=== PATIENT | female | born 1995 | race Caucasian/White ===

== ENCOUNTER 2020-05-14 10:02 | Emergency (ER) | payer BC, SELFPAY ==
[2020-05-14 10:21] VITALS: BP 144/98; PULSE 88; RESP 18; TEMP 36.8; O2SAT 100
--- NOTE | 2020-05-14 10:22 | ED.URI ---
HPI - URI/Sore Throat General Chief Complaint: Upper Respiratory Infection Stated Complaint: upper respiratory infection Time Seen by Provider: 05/14/20 10:10 Source: patient Mode of arrival: ambulatory Limitations: no limitations History of Present Illness HPI Narrative: This is a 24-year-old white female that presented to the urgent care today complaining of throat and ear pain. According to the patient she developed symptoms on Wednesday she noted that she had nasal congestion with yellowish fluids she also complains of a sore throat and ear pain. Patient did not take anything at home for her symptoms. She also noted that her [id number] has been ill but she is unsure of the cause of his illness. Patient did note that she took a recent culture test yesterday which was negative MD elicited complaint: sore throat Related Data Allergies Allergy/AdvReac Type Severity Reaction Status Date / Time No Known Allergies Allergy Verified 05/14/20 10:20 Review of Systems Review of Systems: Narrative: CONSTITUTIONAL: Denies fever, chills, sweats. EYES: Denies visual changes, redness, discharge. ENT: Complains of rhinorrhea, congestion, sore throat, bilateral ear pain CARDIOVASCULAR: Denies chest pain, palpitations, edema. RESPIRATORY: Denies dyspnea, wheezing, cough GASTROINTESTINAL: Denies abdominal pain, nausea, vomiting, diarrhea. GENITOURINARY: Denies dysuria, hematuria, abnormal discharge SKIN: Denies rash or itching. MUSCULOSKELETAL: Denies acute back pain, joint pain, or myalgia. NEUROLOGIC: Denies numbness, or focal weakness. PSYCHIATRIC: Denies anxiety or depression. [facility] Social History Social History Gender identity (if verbalized by the patient): Female Exam Narrative: Exam Narrative: GENERAL: This is a well-nourished, well-developed patient, in no apparent distress. HEAD: normocephalic, atraumatic. EYES: PERRL. Sclera clear/white. Vision is grossly intact. EARS: External ears normal, auditory canals clear with erythma , TMs normal without perforation. Hearing grossly intact. NOSE: External nose normal with no obvious nasal discharge, nares without redness, no rhinorrhea. THROAT: Erythema and edematous NECK: Neck supple, non-tender without lymphadenopathy, masses or thyromegaly. CARDIOVASCULAR: Regular rate and rhythm without murmurs, gallops, or rubs. RESPIRATORY: Clear to auscultation. Breath sounds equal bilaterally. No wheezes, rales, or rhonchi. GASTROINTESTINAL: Abdomen soft, non-tender, nondistended. Bowel sounds are active. No hepato-splenomegaly, or palpable masses. No guarding. SKIN: warm, intact with no suspicious lesions or rash, good texture and turgor. NEURO: awake, alert, and oriented to person, place and time. There were no obvious focal neurologic abnormalities. Steady gait EXTREMITIES: Normal range of motion. No edema. No calf tenderness. Negative Homans sign bilaterally. BACK: Nontender without deformity or crepitance. No flank tenderness. Course Course Emergency Course: Positive for strep Vital Signs Vital signs: Vital Signs Temperature 98.3 F 05/14/20 10:21 Pulse Rate 88 05/14/20 10:21 Respiratory Rate 18 05/14/20 10:21 Blood Pressure 144/98 H 05/14/20 10:21 Pulse Oximetry 100 05/14/20 10:21 Temperature 98.3 F 05/14/20 10:21 Pulse Rate 88 05/14/20 10:21 Respiratory Rate 18 05/14/20 10:21 Blood Pressure 144/98 H 05/14/20 10:21 Pulse Oximetry 100 05/14/20 10:21 MDM - URI/Sore Throat Differential Diagnosis Differential diagnosis: Likely upper respiratory infection, otitis media, sinusitis, bronchitis and pharyngitis Medical Records Medical records narrative: Have reviewed nursing assessment and agrees with Discharge Plan Discharge Clinical Impression: Otitis media, Strep pharyngitis Patient Disposition: Home, Self-Care Condition: Stable Instructions: Antibiotic Form Additional Instructions: Rapid strep is negative in the office; rosa
--- NOTE | 2020-05-14 12:44 | ED.URI ---
HPI - URI/Sore Throat General Chief Complaint: Upper Respiratory Infection Stated Complaint: upper respiratory infection Time Seen by Provider: 05/14/20 10:10 Source: patient Mode of arrival: ambulatory Limitations: no limitations Related Data Allergies Allergy/AdvReac Type Severity Reaction Status Date / Time No Known Allergies Allergy Verified 05/14/20 10:20 Review of Systems Review of Systems: Narrative: CONSTITUTIONAL: Denies fever, chills, sweats. EYES: Denies visual changes, redness, discharge. ENT: Denies rhinorrhea, congestion, sore throat, otalgia. CARDIOVASCULAR: Denies chest pain, palpitations, edema. RESPIRATORY: Denies dyspnea, wheezing, cough GASTROINTESTINAL: Denies abdominal pain, nausea, vomiting, diarrhea. GENITOURINARY: Denies dysuria, hematuria, abnormal discharge SKIN: Denies rash or itching. MUSCULOSKELETAL: Denies acute back pain, joint pain, or myalgia. NEUROLOGIC: Denies numbness, or focal weakness. PSYCHIATRIC: Denies anxiety or depression. [facility] Social History Social History Gender identity (if verbalized by the patient): Female Course Vital Signs Vital signs: Vital Signs Temperature 98.3 F 05/14/20 10:21 Pulse Rate 88 05/14/20 10:21 Respiratory Rate 18 05/14/20 10:21 Blood Pressure 144/98 H 05/14/20 10:21 Pulse Oximetry 100 05/14/20 10:21 Temperature 98.3 F 05/14/20 10:21 Pulse Rate 88 05/14/20 10:21 Respiratory Rate 18 05/14/20 10:21 Blood Pressure 144/98 H 05/14/20 10:21 Pulse Oximetry 100 05/14/20 10:21 MDM - URI/Sore Throat Lab Data Labs: Strep Screen Positive Group A Strep *(Reference Range: Negative)* Discharge Plan Discharge Clinical Impression: Otitis media, Strep pharyngitis Patient Disposition: Home, Self-Care Condition: Stable Instructions: Antibiotic Form Additional Instructions: Rapid strep is negative in the office; however we will send to the lab for confirmation; there is a small percentage chance that it can come back positive; if it is, we will call you in 2-3days; and your prescription will be call in to your pharmacy. However, there is NO indication for antibiotic at this time. -Give your child things that are easy to swallow, like tea or soup, or popsicles to suck on. Your child might not feel like eating or drinking, but it's important that he or she gets enough liquids. -Oral rinses such as: Salt water gargles and/or may use topical anesthetic (eg. Chloraseptic spray) or lozenges to relieve dryness or throat pain. -Take tylenol and ibuprofen as needed for pain and fever as directed. -Frequent hand washing or hand multi spindle operator is one of the best ways to prevent spread of infection. -Follow up with primary care provider in 2-3 days if condition is not improving or seek ER visit if your child starts breathing fast/has trouble breathing, is not drinking enough fluids, muffle voice, difficulty opening the mouth or will not wake up or will not interact with you. Prescriptions: New amoxicillin 500 mg tablet 500 mg PO TID 10 Days Qty: 30 RF: 0 Follow-up/Referrals: PHYSICIAN NOT ON STAFF,NONSTAFF [Primary Care Provider] - Time of Disposition: 10:34 Discharge Date/Time: 05/14/20 10:37
== END 2020-05-14 10:37 | disposition home or self-care (01) ==
PROVIDERS: Emergency Provider Nurse Practitioner
DX: H66.93 Otitis media, unspecified, bilateral (principal); J02.0 Streptococcal pharyngitis
CPT/HCPCS: 87880; 99213; G0463

== ENCOUNTER 2020-07-25 10:16 | Emergency (ER) | payer BC, SELFPAY ==
[2020-07-25 10:24] VITALS: BP 141/85; PULSE 76; RESP 16; TEMP 36.5; O2SAT 100
[2020-07-25 10:30] VITALS: BP 141/85; PULSE 76; RESP 16; TEMP 36.5; O2SAT 100
--- NOTE | 2020-07-25 10:31 | ED.URI ---
HPI - URI/Sore Throat General Chief Complaint: Upper Respiratory Infection Stated Complaint: Cough Time Seen by Provider: 07/25/20 10:31 Source: patient Mode of arrival: ambulatory Limitations: no limitations History of Present Illness HPI Narrative: Keri Rojas is a 24 yo female with no PMH [facility] and coughing up green mucus, that started about a week ago that has gradually gotten worse states that pain today is 4 out of 10. Hurts when cough or take a deep breath Related Data Home Medications Medication Instructions Recorded Confirmed drospirenone-ethinyl estradiol 1 tablet PO DAILY 07/25/20 07/25/20 [Yadira] Allergies Allergy/AdvReac Type Severity Reaction Status Date / Time No Known Allergies Allergy Verified 07/25/20 10:29 Review of Systems Review of Systems: Narrative: CONSTITUTIONAL: Denies fever, chills, sweats. Fatigue and cough EYES: Denies visual changes, redness, discharge. ENT: Denies rhinorrhea, nasal congestion, sore throat, otalgia. CARDIOVASCULAR: Denies chest pain, palpitations, edema. RESPIRATORY: Denies dyspnea, wheezing, productive cough GASTROINTESTINAL: Denies abdominal pain, nausea, vomiting, diarrhea. GENITOURINARY: Denies dysuria, hematuria, abnormal discharge SKIN: Denies rash or itching. NEUROLOGIC: Denies numbness, or focal weakness. PSYCHIATRIC: Denies anxiety or depression. PMFSH Past Medical History Medical History No acute medical problems Family History Family History Other Hypertension Social History Social History (Updated 07/25/20 @ 10:41 by Katina Alves CNP) Smoking status: Never smoker Alcohol intake: current Gender identity (if verbalized by the patient): Female Comments At time of signature, I agree with nursing past medical, surgical, social and family history. There is no relevant family history pertinent to the presenting complaint. Exam Narrative: Exam Narrative: GENERAL: This is a well-nourished, well-developed patient, in mild distress. HEAD: normocephalic, atraumatic. EYES: PERRL. Sclera clear/white. Vision is grossly intact. EARS: External ears normal, auditory canals clear and without drainage, TMs normal without perforation. Hearing grossly intact. NOSE: External nose normal without nasal discharge, nares without redness, no rhinorrhea. THROAT: Mucous membranes moist, posterior pharynx NECK: Neck supple, non-tender CARDIOVASCULAR: Regular rate and rhythm without murmurs, gallops, or rubs. RESPIRATORY: Diminished to auscultation. Breath sounds diminished on right lower lobe , No wheezes, rales, or rhonchi. GASTROINTESTINAL: Abdomen soft, r, SKIN: warm, intact with no suspicious lesions or rash, good texture and turgor. NEURO: awake, alert, and oriented to person, place and time. There were no obvious focal neurologic abnormalities. Steady gait EXTREMITIES: Normal range of motion. BACK: Nontender without deformity Course Course Emergency Course: Came to express care with productive cough with green mucus, postnasal drip and cough Diminished breath sounds on right, sporadic coughing, started on amoxicillin, albuterol, prednisone, Tessalon Follow-up with PCP Vital Signs Vital signs: Vital Signs Temperature 97.7 F 07/25/20 10:24 Pulse Rate 76 07/25/20 10:24 Respiratory Rate 16 07/25/20 10:24 Blood Pressure 141/85 H 07/25/20 10:24 Pulse Oximetry 100 07/25/20 10:24 Temperature 97.7 F 07/25/20 10:30 Pulse Rate 76 07/25/20 10:30 Respiratory Rate 16 07/25/20 10:30 Blood Pressure 141/85 H 07/25/20 10:30 Pulse Oximetry 100 07/25/20 10:30 MDM - URI/Sore Throat Differential Diagnosis Differential diagnosis: Likely upper respiratory infection, bronchitis, pharyngitis and other Discharge Plan Discharge Clinical Impression: Bronchitis
== END 2020-07-25 10:50 | disposition home or self-care (01) ==
PROVIDERS: Emergency Provider Nurse Practitioner
DX: J40 Bronchitis, not specified as acute or chronic (principal)
CPT/HCPCS: 99213; G0463

== ENCOUNTER 2022-09-14 08:04 | Emergency (ER) | payer OTHER, SELFPAY ==
--- NOTE | 2022-09-14 08:06 | ED.SKABFB ---
HPI - Skin/Abscess/Foreign Bdy General Chief complaint: Skin/Abscess/Foreign Body Stated complaint: Infected Nose Ring Time Seen by Provider: 09/14/22 08:21 Source: patient and RN notes reviewed Mode of arrival: ambulatory Limitations: dementia History of Present Illness HPI narrative: 26-year-old female presents with concern for infected nasal piercing. She reports she has had the piercing for over a year. Reports it started getting red couple of days ago today she woke up with worsening tenderness and a white bump on her nose. She denies fever, aches, chills, sweats, denies drainage from the area. Reports she has been putting [id number] antibiotic ointment without relief. She denies any pain, redness in her face, cheek MD complaint: abscess/boil Related Data Home Medications Medication Instructions Recorded Confirmed drospirenone 3 mg-ethinyl 1 tablet PO DAILY 07/25/20 09/14/22 estradiol 0.03 mg tablet (Yadira) bupropion HCl 150 mg 24 hr tablet, 150 mg PO DAILY 09/14/22 09/14/22 extended release spironolactone 50 mg tablet 100 mg PO DAILY 09/14/22 09/14/22 Allergies Allergy/AdvReac Type Severity Reaction Status Date / Time No Known Allergies Allergy Verified 09/14/22 08:13 Review of Systems Review of Systems: CONSTITUTIONAL: Denies malaise, chills, sweats, or fever. EYES: Denies redness, or discharge. ENT: Denies rhinorrhea CARDIOVASCULAR: Denies chest pain, palpitations, or edema. RESPIRATORY: Denies cough or dyspnea. GASTROINTESTINAL: Denies abdominal pain, nausea, vomiting SKIN: Reports redness, swelling of the left nostril. Denies purulent drainage, vesicles, bullae, numbness, pain beyond proportion MUSCULOSKELETAL: Denies joint pain or myalgia. NEUROLOGIC: Denies headache. All systems reviewed & are unremarkable except as noted in HPI and below PMFSH Past Medical History Medical History No acute medical problems Family History Family History Other Hypertension Social History Social History (Updated 07/25/20 @ 10:41 by Katina A. Long, BUSINESS SERVICES ANALYST) Smoking status: Never smoker Alcohol intake: current Gender identity (if verbalized by the patient): Female Comments At time of signature, agree with nursing past medical, surgical, social and family history. There is no relevant family history pertinent to the presenting complaint Exam Narrative: GENERAL: Well-appearing, well-nourished, and in no acute distress. HEAD: Normocephalic, atraumatic. EYES: PERRLA, conjunctivae clear ENT: Mucous membranes moist. NECK: Supple. No lymphadenopathy CHEST: Clear to auscultation. No respiratory distress. HEART: Regular rate and rhythm. SKIN: Warm, dry. Erythema, induration, tenderness, warmth with sharp margins noted to the left nostril with a small white pustule next to the piercing. No erythema, tenderness, induration noted outside of the left nostril. No vesicles, bullae, necrosis, ecchymosis, crepitus noted. NEURO: Alert and oriented x3. PSYCH: Normal mood and affect Course Course Emergency Course: Discussed with patient importance of monitoring this infection on her nose and if it worsens she needs to go to the emergency room. Patient is aware of diagnosis, understands and agrees to treatment plan. Anticipatory guidance given. Patient agrees to follow-up as directed and is aware of reasons to seek care at the emergency department. Portions of this record may have been created with voice recognition software Level of Care: Express Care Visit Vital Signs Vital signs: Reviewed. MDM - Skin/Abscess/Foreign Bdy MDM Narrative Medical decision making narrative: Does not appear at this time to be erythema multiforme, bullous, SJS, TEN; no evidence at this time to suggest RMSF, NSTI, endocarditis or Lyme disease; patient looks well, nontoxic and is tolerating oral intake; no carmen
[2022-09-14 08:12] VITALS: BP 112/71; PULSE 69; RESP 18; TEMP 36.7; O2SAT 99
[2022-09-14 08:14] VITALS: BP 112/71; PULSE 69; RESP 18; TEMP 36.7; O2SAT 99
== END 2022-09-14 08:40 | disposition home or self-care (01) ==
PROVIDERS: Emergency Provider Nurse Practitioner
DX: S01.24XA Puncture wound with foreign body of nose, initial encounter (principal); L08.9 Local infection of the skin and subcutaneous tissue, unspecified; X58.XXXA Exposure to other specified factors, initial encounter
CPT/HCPCS: 99213; G0463

== ENCOUNTER 2023-10-12 08:17 | Emergency (ER) | payer OTHER, SELFPAY ==
[2023-10-12 08:25] VITALS: BP 113/82; PULSE 85; RESP 16; TEMP 36.4; O2SAT 100
--- NOTE | 2023-10-12 08:41 | ED.URI ---
HPI - URI/Sore Throat General Chief Complaint: Upper Respiratory Infection Stated Complaint: Ear pain;Sore Throat Time Seen by Provider: 10/12/23 08:38 Source: patient and RN notes reviewed Mode of arrival: ambulatory Limitations: no limitations History of Present Illness HPI Narrative: 27-year-old female presents with concern for sore throat, ear pain, nasal congestion, rhinorrhea, cough, body aches, chills, sweats, fever. Reports symptoms started Wednesday. She reports she has been taking ibuprofen. Reports her son has similar symptoms. MD elicited complaint: sore throat and nasal congestion Related Data Home Medications Medication Instructions Recorded Confirmed drospirenone 3 mg-ethinyl 1 tablet PO DAILY 07/25/20 10/12/23 estradiol 0.03 mg tablet (Yadira) spironolactone 50 mg tablet 100 mg PO DAILY 09/14/22 10/12/23 phentermine 15 mg capsule 15 mg PO DAILY 10/12/23 10/12/23 sumatriptan succinate 50 mg tablet 50 mg PO DAILY 10/12/23 10/12/23 Allergies Allergy/AdvReac Type Severity Reaction Status Date / Time No Known Allergies Allergy Verified 10/12/23 08:34 Review of Systems Review of Systems: CONSTITUTIONAL: Reports malaise, chills, sweats, or fever. EYES: Denies visual changes, redness, or discharge. ENT: Reports rhinorrhea, congestion, otalgia and sore throat. CARDIOVASCULAR: Denies chest pain, palpitations, or edema. RESPIRATORY: Reports cough. Denies dyspnea. GASTROINTESTINAL: Denies abdominal pain, nausea, vomiting, diarrhea SKIN: Denies rash or itching. MUSCULOSKELETAL: Reports myalgia. NEUROLOGIC: Denies headache. All systems reviewed & are unremarkable except as noted in HPI and below PMFSH Past Medical History Medical History No acute medical problems Family History Family History Other Hypertension Social History Social History (Updated 07/25/20 @ 10:41 by Katina Alves, ARTURO) Smoking status: Never smoker Alcohol intake: current Gender identity (if verbalized by the patient): Female Comments At time of signature, agree with nursing past medical, surgical, social and family history. There is no relevant family history pertinent to the presenting complaint Exam Narrative: GENERAL: Well-appearing, well-nourished, and in no acute distress. HEAD: Normocephalic EYES: PERRLA, conjunctivae clear ENT: Nares clear. Mucous membranes moist. TM pearly frank with dull light reflex bilaterally; no tragal tenderness. Oropharynx not erythematous without lesions. Tonsils not enlarged and without exudate, no drooling, no hoarseness, no trismus, uvula midline. NECK: Supple. No lymphadenopathy CHEST: Clear to auscultation, breath sounds equal. No wheezing, rhonchi, rales, or stridor. No respiratory distress, speaks in full sentences. HEART: Regular rate and rhythm. No murmur heard. SKIN: Warm, dry, no rash. NEURO: Alert and oriented x3. PSYCH: Normal mood and affect Course Course Emergency Course: Patient is aware of diagnosis, understands and agrees to treatment plan. Anticipatory guidance given. Patient agrees to follow-up as directed and is aware of reasons to seek care at the emergency department. Portions of this record may have been created with voice recognition software Level of Care: Express Care Visit Vital Signs Vital signs: Vital Signs Temperature 97.5 F L 10/12/23 08:25 Pulse Rate 85 10/12/23 08:25 Respiratory Rate 16 10/12/23 08:25 Blood Pressure 113/82 10/12/23 08:25 Pulse Oximetry 100 10/12/23 08:25 Temperature 97.5 F L 10/12/23 08:25 Pulse Rate 85 10/12/23 08:25 Respiratory Rate 16 10/12/23 08:25 Blood Pressure 113/82 10/12/23 08:25 Pulse Oximetry 100 10/12/23 08:25 Reviewed. MDM - URI/Sore Throat MDM Narrative Medical decision making narrative: Differential diagnosis considered: Briseno virus, strep ph
== END 2023-10-12 09:08 | disposition home or self-care (01) ==
PROVIDERS: Emergency Provider Nurse Practitioner; PCP Nurse Practitioner
DX: B34.9 Viral infection, unspecified (principal); Z79.899 Other long term (current) drug therapy; Z20.822 Contact with and (suspected) exposure to COVID-19
CPT/HCPCS: 87081; 87426; 87804; 87880; 99213; G0463

== ENCOUNTER 2025-01-24 08:18 | Emergency (ER) | payer OTHER, SELFPAY ==
--- NOTE | 2025-01-24 08:20 | ED_ITS ---
HPI - Ear Problem General Chief complaint: Ear Stated complaint: right ear pain Time Seen by Provider: 01/24/25 08:19 Source: patient Mode of arrival: ambulatory Limitations: no limitations History of Present Illness HPI Narrative: Keri is a 29-year-old female patient presenting to the clinic today with complaints of right ear rash/itching. She reports this is been going on for the last few days. States that there is some clear drainage coming from the right ear. Area is very itchy. Denies any recent swimming. Related Data Home Medications ?Medication ?Instructions ?Recorded ?Confirmed ?Last Taken ?Type drospirenone 3 mg-ethinyl 1 tablet PO DAILY 07/25/20 10/12/23 Unknown History estradiol 0.03 mg tablet (Yadira) Allergies Allergy/AdvReac Type Severity Reaction Status Date / Time No Known Allergies Allergy Verified 01/24/25 08:33 Review of Systems 2 Review of Systems: Pertinent positives per HPI. Patient denies any fever, chills, rash, headache, visual changes, dizziness, cough, runny nose, sore throat, shortness of breath, chest pain, palpitations, nausea, vomiting, diarrhea, constipation, abdominal pain, or any urinary issues. PMFSH Past Medical History Medical History No acute medical problems Family History Family History Other Hypertension Social History Social History Smoking status: Never smoker Alcohol intake: current Gender identity (if verbalized by the patient): Female Comments At the time of my signature, I reviewed and agree with the nursing past medical, surgical, social, and family history. There is no relevant family history pertinent to the patient complaint. Exam Narrative: General: Well-developed, well nourished, in no apparent distress Head: Normocephalic, atraumatic. Cardio: Regular rate and rhythm, s1 and s2 normal, no murmur appreciated. Resp: Clear to auscultation bilaterally, no rhonchi, rales, wheezing or rubs. Integumentary: [place], warm, and dry, red, scaly, itchy rash to the right external ear canal with clear drainage Course Course Emergency Course: Portions of this record may have been created with voice recognition software. Level of Care: Express Care Visit Vital Signs Vital signs: Vital Signs Temperature 36.6 C 01/24/25 08:29 Pulse Rate 73 01/24/25 08:29 Respiratory Rate 18 01/24/25 08:29 Blood Pressure 115/71 01/24/25 08:29 Pulse Oximetry 100 01/24/25 08:29 Oxygen Delivery Room Air 01/24/25 08:29 Temperature 36.6 C 01/24/25 08:29 Pulse Rate 73 01/24/25 08:29 Respiratory Rate 18 01/24/25 08:29 Blood Pressure 115/71 01/24/25 08:29 Pulse Oximetry 100 01/24/25 08:29 Oxygen Delivery Room Air 01/24/25 08:29 Vital signs reviewed Medical Decision Making MDM Narrative Medical decision making narrative: At the time of visit patient is resting comfortably on the exam table. Patient appears to be nontoxic. Plan: I suspect patient has dermatitis of the right ear canal. Prescription for triamcinolone cream was sent to the pharmacy. Supportive measures were discussed with the patient and they voiced understanding discharge instructions and agrees to treatment plan. Return precautions reviewed Differential Diagnosis Differential Diagnosis: Otitis media, otitis externa, eustachian tube dysfunction, cerumen impaction, upper respiratory infection, serous otitis Vital Signs Vital Signs: Vital Signs Temperature 36.6 C 01/24/25 08:29 Pulse Rate 73 01/24/25 08:29 Respiratory Rate 18 01/24/25 08:29 Blood Pressure 115/71 01/24/25 08:29 Pulse Oximetry 100 01/24/25 08:29 Oxygen Delivery Room Air 01/24/25 08:29 Temperature 36.6 C 01/24/25 08:29 Pulse Rate 73 01/24/25 08:29 Respiratory Rate 18 01/24/25 08:29 Blood Pressure 115/71 01/24/25 08:29 Pulse Oximetry 100 01/24/25 08:29 Oxygen Delivery Room Air 01/24/25 08:29 Discharge Plan Discharge Clinical Impression: Dermatitis of right ear canal Patient Disposition: Home Condition: Stable Instructions: Antibiotic Form, Dermatitis (ED) Additional Instructions: Apply triamcinolone cream to the affected area twice daily x1 week Keep the area clean and dry May moisturize the area using and non scented lotion such as Lubriderm, Cetaphil, or Aquaphor Avoid scratching as this can cause a secondary infection Follow-up with your primary care doctor in 3-5 days if symptoms persist or sooner if they worsen Patient Language: Marshallese Prescriptions: New triamcinolone acetonide 0.1 % cream 1 applic topical BID 7 Days Qty: 30 0RF No Action drospirenone-ethinyl estradiol [Yadira] 3-0.03 mg Tablet 1 tablet PO DAILY Follow-up/Referrals: Kerri,FANTA Cohen [Primary Care Provider] - Time of Disposition: 08:34 Quality NIHSS Nursing Documentation ED NIHSS nursing documentation: reviewed/agree
[2025-01-24 08:29] VITALS: BP 115/71; PULSE 73; RESP 18; TEMP 36.6; O2SAT 100
== END 2025-01-24 08:40 | disposition home or self-care (01) ==
PROVIDERS: Emergency Provider Nurse Practitioner Family; PCP Nurse Practitioner
DX: L30.9 Dermatitis, unspecified (principal)
CPT/HCPCS: 99213; G0463